=== PATIENT | female | born 1980 | race Caucasian/White ===

== ENCOUNTER 2016-08-22 18:49 | Observation (INO) ==
[2016-08-22] MEDS ORDERED: *HR* Promethazine 25 MG/ML VIAL IVP PRN (18:58)
[2016-08-22] MEDS ORDERED: *HR* HYDROmorphone (PF) 1 MG/ML SYRINGE IVP PRN (18:58)
[2016-08-22] MEDS ORDERED: Acetaminophen 325 MG TABLET PO PRN (18:58)
[2016-08-22] MEDS ORDERED: Ringers Solution, Lactated 1,000 ML IVC ONE (19:05)
--- NOTE | 2016-08-22 19:19 | OB/GYN History & Physical ---
Date of Encounter: 08/22/16 Time of Encounter: 19:16 Assessment and Plan (1) 8 weeks gestation of Current visit: Yes Status: Acute (2) Acute right flank pain Current visit: Yes Status: Acute Pt with significant back pain and symptoms of dysuria, frequency and urgency as well as n/v. Will admit for IVF and IV antiemetics. Will start on Rocephin. Will strain urine. If pain persists consider renal u/s. (3) Cystitis Current visit: Yes Status: Acute History of Present Illness Chief complaint: Back pain, urinary frequency and urgency, nausea and now emesis HPI: Ms. Woodall is a 36 year old female 2 para 1 female with an EDC of 03/29/17 currently 8 weeks and 5 days presents with a one-week history of nausea and now today with severe pain and right low back, suprapubic pain, urinary urgency and frequency and dysuria. She continues to have nausea and now has emesis. She did have some first trimester spotting she is no longer having any bleeding. She has no history of prior UTI or nephrolithiasis. Past Med Surg Social Fam HX - Past Medical History Source: patient, old records reviewed Medical history: asthma - Past Surgical History Surgical History: no surgical history Obstetrical History - Pregnancies : 2 Para: 1 Review of System OB All systems PM: reviewed and no additional remarkable complaints except as stated Exam - Constitutional Constitutional: well developed, no acute distress - HEENT HEENT: EOMI, PERRL - Neck Neck exam: full ROM - Lungs Respiratory exam: CTAB - Cardiovascular Cardiovascular exam: RRR - Abdomen Abdomen: Present: gravid Abdomen detail: right lower quadrant: tenderness (mostly suprapubic), left lower quadrant: tenderness - Extremities Extremities exam: full ROM Deep Tendon Reflex Grade: 2+ Normal Results All other labs normal.
[2016-08-22 19:34] LABS: Basophils % 0.1 %; Eosinophils % 0.1 %; Hematocrit 40.4 % (35.3-44.9); Hemoglobin 13.4 g/dL (11.5-15.4); Immature Granulocytes % 0.4 % (0-4); Lymphocytes # 1.3 K/mcL (0.6-4.6); Lymphocytes % 9.3 %; Mean Corpuscular HGB Conc 33.2 g/dL (31.6-35.5); Mean Corpuscular Hemoglobin 27.3 pg (28.0-33.3); Mean Corpuscular Volume 82.4 fL (83.0-100.0); Mean Platelet Volume 9.3 fL (9.4-12.4); Monocytes # 0.4 K/mcL (0.0-1.3); Platelet Count 214 K/mcL (140-400); Red Cell Distribution Width 14.2 % (11.5-14.5); Segmented Neutrophils % 87.1 %
[2016-08-22 19:52] LABS: BUN/Creatinine Ratio 11 (6-26); Blood Urea Nitrogen 11 mg/dL (7-20); Calcium 9.3 mg/dL (8.6-10.8); Carbon Dioxide 21 mEq/L (19-29); Chloride 108 mEq/L (98-109); Glucose 107 mg/dL (70-99); Osmolality,Calculated 286 (280-300); Sodium 138 mEq/L (136-145); eGFR For African Americans > 60 (> 60); eGFR For Non-African Americans > 60 (> 60)
[2016-08-22] MEDS: Ringers Solution, Lactated 1,000 ML IVC SCH (22:42)
--- NOTE | 2016-08-23 07:13 | History & Physical Report ---
Date of Encounter: 08/23/16 Time of Encounter: 07:13 24 Hour HP Update - Instructions Instructions: If the History and Physical is less than 30 days old and was completed prior to A.M. admission and or procedure and has NOT been updated on calendar day of procedure please complete this update prior to performing procedure. - Update Patient reports changes in Medical Condition: No Changes in examination, assessment, or condition: No Changes in Medication: No Preop tests/diagnostics Reviewed: Yes Surgery Remains Indicated: Yes Consent for Planned Operative Procedure(s) Verified: Yes - Pre-Operative Checklist Preoperative Checklist Indicated: Yes Prophylactic Antibiotic Ordered: Yes Home Medications Include Beta Laurie: No Beta Laurie Taken Today (Day of Surgery): No Beta Laurie Taken Yesterday (Day Prior to Surgery): No Is VTE Prophylaxis Indicated?: Yes
[2016-08-23 07:21] LABS: Bilirubin,Urine Small (Negative); Blood,Urine Large (Negative); Clarity,Urine Turbid (Clear); Color,Urine Red (Yellow); Glucose,Urine (UA) Normal (Normal); Ketones,Urine 15 mg/dL (Negative); Leukocyte Esterase,Urine Moderate (Negative); Nitrite,Urine Negative (Negative); Protein,Urine 100 mg/dL (Neg-Trace); Specific Gravity,Urine 1.029 (1.010-1.025); Urobilinogen,Urine Normal (Normal)
[2016-08-23 07:24] LABS: RBC,Urine TNTC per hpf (0-3); Squamous Epithelial Cell,Urine Many per lpf (None-Few)
--- NOTE | 2016-08-23 07:29 | Discharge Summary ---
Date of Encounter: 08/23/16 Time of Encounter: 07:29 - Discharge Diagnosis (1) 8 weeks gestation of Priority: Secondary Status: Acute Comments: Patient states vaginal spotting; vaginal ultrasound performed yesterday. Per patient, no subchorionic bleed noted during ultrasound. Continue pelvic rest. Follow up in office if spotting continues past Tuesday of this week. Continue routine care. (2) Acute right flank pain Priority: Primary Status: Resolved Comments: Right flank pain resolved. Finish one liter of LR and patient may be discharged home. (3) Cystitis Priority: Primary Status: Acute Comments: Patient continues to complain of urgency with urination. Continue with keflex po as ordered until Rx completed Encourage increased water consumption Decrease caffeine and acidic foods in diet. Follow up in office with routine care or as needed if urinary urgency has not resolved by Tuesday of this week. - Discharge Medications Home Medications: Acetaminophen [Tylenol] 650 mg PO Q6HR PRN #0 tablet 08/23/16 [Rx] Data Procedures and tests throughout hospitalization: Laboratory Tests 08/22/16 08/22/16 08/22/16 19:24 19:24 20:20 WBC 13.8 H RBC 4.90 Hgb 13.4 Hct 40.4 MCV 82.4 L MCH 27.3 L MCHC 33.2 RDW 14.2 Plt Count 214 MPV 9.3 L Immature Gran % 0.4 Seg Neutrophils % 87.1 Lymphocytes % 9.3 Monocytes % 3.0 Eosinophils % 0.1 Basophils % 0.1 Neutrophils # 12.0 H Lymphocytes # 1.3 Monocytes # 0.4 Eosinophils # 0.0 Basophils # 0.0 Sodium 138 Potassium 4.0 Chloride 108 Carbon Dioxide 21 BUN 11 Creatinine 1.01 Est GFR ( Amer) > 60 Est GFR (Non-Af Amer) > 60 BUN/Creatinine Ratio 11 Glucose 107 H Calculated Osmolality 286 Calcium 9.3 Urine Color Red A Urine Clarity Turbid A Urine pH 6.0 Ur Specific [place] 1.029 H Urine Protein 100 H Urine Glucose (UA) Normal Urine Ketones 15 H Urine Blood Large H Urine Nitrite Negative Urine Bilirubin Small H Urine Urobilinogen Normal Ur Leukocyte Esterase Moderate H Labs on day of discharge: Labs from last 24 hours 08/22/16 08/22/16 08/22/16 20:20 19:24 19:24 WBC 13.8 H RBC 4.90 Hgb 13.4 Hct 40.4 MCV 82.4 L MCH 27.3 L MCHC 33.2 RDW 14.2 Plt Count 214 MPV 9.3 L Immature Gran % 0.4 Seg Neutrophils % 87.1 Lymphocytes % 9.3 Monocytes % 3.0 Eosinophils % 0.1 Basophils % 0.1 Neutrophils # 12.0 H Lymphocytes # 1.3 Monocytes # 0.4 Eosinophils # 0.0 Basophils # 0.0 Sodium 138 Potassium 4.0 Chloride 108 Carbon Dioxide 21 BUN 11 Creatinine 1.01 Est GFR ( Amer) > 60 Est GFR (Non-Af Amer) > 60 BUN/Creatinine Ratio 11 Glucose 107 H Calculated Osmolality 286 Calcium 9.3 Urine Color Red A Urine Clarity Turbid A Urine pH 6.0 Ur Specific [place] 1.029 H Urine Protein 100 H Urine Glucose (UA) Normal Urine Ketones 15 H Urine Blood Large H Urine Nitrite Negative Urine Bilirubin Small H Urine Urobilinogen Normal Ur Leukocyte Esterase Moderate H Date of admission: 08/22/16 18:52 Primary care physician: Raúl Reina MD Discharging clinician: Sandra Hoyt - Patient Status Disposition: Home, Self-Care Condition: Good Functional capacity at discharge: independent ambulation Overall status at discharge: patient is back to baseline - Discharge Instructions Follow Up With: Raúl Reina MD [Primary Care Provider] - Ksenia Diaz MD [Partnered Physician] - - Diet and Activity Activity: resume usual activities as tolerated Diet: regular diet Hospital Course [employer] Time Attestation: Total time spent providing and/or coordinating discharge services: Time Spent: Less than 30 minutes Exam - Constitutional Vitals: Temp Pulse Resp BP Pulse Ox 97.8 F 82 14 119/86 97 08/23/16 02:50 08/23/16 02:50 08/23/16 02:50 08/23/16 02:50 08/23/16 02:50 General appearance IM: cooperative, A&O X 3, pleasant - Respiratory Respiratory exam: Present: CTAB - Cardiovascular Cardiovascular exam IM: Present: RRR, +S1, +S2 - GI/Abdominal GI/Abdominal exam IM: normal bowel sounds, soft - Extremities Exam Extremities exam IM: Present: full ROM, normal capillary refill, normal inspection, radial pulses palpable and symetrical - Neurological Exam Neurological exam: alert, oriented X3, reflexes normal - VTE Documentation of Mechanical Device: Intermittent pneumatic compression device
[2016-08-23] MEDS: Ringers Solution, Lactated 1,000 ML IVC SCH (07:30)
[2016-08-23 07:37] LABS: Amorphous Sediment,Urine Many (Few); Bacteria,Urine Many per hpf (None-Few); Calcium Oxalate Crystals,Urine Present
== END 2016-08-23 12:49 | disposition home or self-care (01) ==
LOC: 1NENUOBS
PROVIDERS: ADMIT Obstetrics & Gynecology; ATTEND Obstetrics & Gynecology

== ENCOUNTER 2017-03-22 11:32 | Inpatient (IN) ==
--- NOTE | 2017-03-22 10:20 | OB/GYN History & Physical ---
Date of Encounter: 03/22/17 Time of Encounter: 10:16 Assessment and Plan (1) 39 weeks gestation of Current visit: Yes Status: Acute Admit for IOL due to AMA status. Plan for martinez induction. Allow intermittent monitoring and ambulation until continuous monitoring is indicated. GBS positive-PCN ppx Clear liquid diet once induction started. Epidural when requested. Anticipate . (2) AMA (advanced maternal age) multigravida 35+ Current visit: Yes Status: Acute Qualifiers: Trimester: third trimester Qualified Code(s): O09.523 - Supervision of elderly multigravida, third trimester (3) Obesity during in third trimester with antepartum complication Current visit: Yes Status: Acute (4) GBS (group B Streptococcus carrier), +RV culture, currently Current visit: Yes Status: Acute History of Present Illness Chief complaint: AMA, induction of labor HPI: Ms. Krishnan is a 36 year old female presenting at 30 weeks gestation for IOL due to AMA. This has been complicated by AMA status , obesity, family history of congenital cardiac defect, and GBS positive. No complaints today other than some situational anxiety. Good FM. Irregular UC. Blood type O positive Rubella immune HIV, Hep B, and Tpal negative GBS positive- pt allergic to augmentin but has tolerated PCN in the past. Progenity testing normal. Pt plans to have an epidural and will breastfeed her baby boy Past Med Surg Social Fam HX - Past Medical History Medical history: asthma Psychiatric history: no psych history - Past Surgical History Surgical History: breast surgery - Social History Smoking Status: Never smoker Smokeless Tobacco Status: No Alcohol use: none Drug use: none Occupational status: employed Current living situation: Home - Independent Activity Level: Independent ambulation Recent Out of Country Travel Within the Last 8 Weeks: No - Family History Mother History Unknown: Yes Adopted: No Living Status: Still Living Hx Family Medical Disorders: No (n/a) Obstetrical History - Pregnancies : 2 Para: 1 Term: 1 : 0 Ab's: 0 Livin - History/Complications History/Complications: uncomplicated first and delivery Medications and Allergies RX: Acetaminophen [Tylenol] 650 mg PO Q6HR PRN #0 tablet 08/23/16 [Rx] 3 Allergy/AdvReac Type Severity Reaction Status Date / Time Amoxicillin [From Augmentin] Allergy Vomiting Verified 08/23/16 07:47 clavulanic acid Allergy Vomiting Verified 08/23/16 07:49 [From Augmentin] Review of System OB All systems PM: reviewed and no additional remarkable complaints except as stated Exam - Constitutional Constitutional: well developed, well nourished, no acute distress - HEENT HEENT: Mucus Membranes Moist - Lungs Respiratory exam: CTAB - Cardiovascular Cardiovascular exam: RRR, +S1, +S2 - Abdomen Abdomen: Present: gravid, non tender - Extremities Extremities exam: normal inspection - Vulva Vulva: bilateral: normal - Vagina Vagina: Present: normal moisture - Cervix Dilation: 2 Effacement: 50 Station: -3 - Uterus Uterus exam: Present: normal size, normal contour. Absent: tender - Anus/Rectum Anus/Rectum: Present: normal perianal skin Results Result Diagrams: 03/22/17 10:30 All other labs normal. - VTE Reasons for not Prescribing Prophylaxis: Treatment not Indicated - Low risk for VTE
[2017-03-22] MEDS: Ringers Solution, Lactated 1,000 ML IVC SCH ×2 (10:44→17:29)
[2017-03-22 10:46] LABS: Basophils % 0.1 %; Eosinophils % 0.3 %; Hematocrit 39.1 % (35.3-44.9); Hemoglobin 12.9 g/dL (11.5-15.4); Immature Granulocytes % 0.6 % (0-4); Lymphocytes # 1.5 K/mcL (0.6-4.6); Lymphocytes % 12.9 %; Mean Corpuscular Hemoglobin 28.7 pg (28.0-33.3); Mean Corpuscular Volume 86.9 fL (83.0-100.0); Mean Platelet Volume 10.6 fL (9.4-12.4); Monocytes # 0.5 K/mcL (0.0-1.3); Monocytes % 4.4 %; Neutrophils # 9.2 K/mcL (1.6-8.9); Nucleated Red Blood Cells 0.2 /100 WBC (0); Platelet Count 132 K/mcL (140-400); Segmented Neutrophils % 81.7 %
--- NOTE | 2017-03-22 11:10 | OB Labor Progress Note ---
Date of Encounter: 03/22/17 Time of Encounter: 11:08 Labor Progress Note - Subjective Subjective: Pt denies pain or other complaints at this time. - Cervix Cervix: 3/70/-2 - Heart Tones Heart Tones: Category I - [place]: irregular - Interventions Interventions: Martinez balloon placed in cervix. Balloon inflated with 60ml sterile water. Pt tolerated well. - Plan Plan: Allow pt to ambulate and use birthing ball. Pt also permitted to use breastpump at this time. Will plan for further augmentation of labor once martinez is out.
[~2017-03-22 11:32] MED LIST: *HR* Nalbuphine 20 MG/ML AMPUL IVP PRN; Famotidine 20 MG/2 ML VIAL IVP PRN; Methylergonovine 0.2 MG/ML AMPUL IM ONE; Naloxone 0.4 MG/ML INJ IVP PRN; Ondansetron 4 MG/2 ML VIAL IVP PRN; Penicillin G Potassium 5,000,000 UNIT in D5% in Water 100 ML IVPB ONE; Ringers Solution, Lactated 1,000 ML ONE
[2017-03-22 13:30] LABS: Amphetamine Screen,Urine Negative ng/mL (Cutoff=1000); Barbiturate Screen,Urine Negative ng/mL (Cutoff=200); Benzodiazepines Screen,Urine Negative ng/mL (Cutoff=200); Cannabinoid Screen,Urine Negative ng/mL (Cutoff = 50); Cocaine Screen,Urine Negative ng/mL (Cutoff= 300); Opiate Screen,Urine Negative ng/mL (Cutoff=300); Phencyclidine Screen,Urine Negative ng/mL (Cutoff=25)
--- NOTE | 2017-03-22 13:55 | OB Labor Progress Note ---
Date of Encounter: 03/22/17 Time of Encounter: 13:52 Labor Progress Note - Subjective Subjective: Pt comfortable at this time. - Cervix Cervix: 5-6/70/-2 - Heart Tones Heart Tones: Category I - [place]: irregular - Interventions Interventions: AROM for small amount blood tinged fluid - Plan Plan: Monitor FHT for 20 minutes and then allow pt to ambulate and use birthing ball. Plan for epidural when requested. Anticpate .
[2017-03-22] MEDS ORDERED: Epidural Premix (fent/bupiv) 110 ML EP ONE (14:29)
[2017-03-22] MEDS: Penicillin G Potassium 2,500,000 UNIT in D5% in Water 100 ML IVPB SCH ×2 (14:37→18:35)
--- NOTE | 2017-03-22 15:11 | Anesthesia Evaluation PreOp ---
Date of Encounter: 03/22/17 Time of Encounter: 14:48 - Past History Planned Operation: vaginal del, ROM 6cm, Cardiac History: Denies any Significant Hx Pulmonary History: Denies Any Significant HX FERRY CAPTAIN History: Denies Any Significant HX Other Medical History: Other (BMI 44) Anesthesia History: No Prior Anesthetic Complications, Past Anesthesia : Yes Alcohol Use: none Drug use: none Medications and Allergies Acetaminophen [Tylenol] 650 mg PO Q6HR PRN #0 tablet 08/23/16 [Rx] 3 Allergy/AdvReac Type Severity Reaction Status Date / Time Amoxicillin [From Augmentin] Allergy Vomiting Verified 08/23/16 07:47 clavulanic acid Allergy Vomiting Verified 08/23/16 07:49 [From Augmentin] Anesthesia Results - Labs 03/22/17 10:30 Anesthesia Exam - HEENT Pupil (Motor): Pupils equal Mallampati: III Teeth: Normal Oral Opening: Greater than 3 - FERRY CAPTAIN LOC: Oriented FERRY CAPTAIN Motor: Normal RUE, Normal LUE, Normal RLE, Normal LLE, Normal Face FERRY CAPTAIN Sensory: Normal: RUE, LUE, RLE, LLE, Face - Cardiac Rhythm: Regular Murmur: None - Pulmonary Breath Sounds: bilateral Clear Respiratory Effort: Symmetrical Anesthesia Assess/Plan ASA Score: 3 Modified Merry Scale for Level of Consciousness: Cooperative, oriented, and tranquil Anesthetic Plan: General, Regional Monitoring Plan: Standard Monitors
--- NOTE | 2017-03-22 15:13 | Anesthesia Procedures ---
Date of Encounter: 03/22/17 Time of Encounter: 14:48 Procedures: Anesthesia - Epidural/Spinal Patient ID/Chart reviewed: Yes Patient examined: Yes OB Eval: Gestational age: term OB Eval: : 2 OB Eval: Hx Para: 1 OB Eval: Dilated at (cm): 6 OB Eval: Contractions: Non-stressed pattern Consent Obtained: Yes Site Prep: Aseptic Technique, Sterile prep and drape, 0.5% Chlorhexidine/Alcohol Patient position: upright Local Anesthetic: Lidocaine 1% Amount of Local Anesthetic used: 2 Touhy Needle Gauge: 18 Touhy Needle Depth (cm): 8 Catheter Depth at Skin (cm): 12 Test Dose (1.5% Lido + Epi): Volume given (mls): 3 Test Dose Result: Negative Loading Dose: Other: 12ml from solution Loading Dose Administered: Thru Catheter Infusion Med: 0.125% Bupivacaine w/ 2 mcg/ml Fentanyl Infusion Rate (mls/hr): [address]: Tegaderm, Tape Interspace Used: L3-L4 Loss of Resistance (LORA): Yes (saline) Blood: No CSF: No Paresthesia: No Procedure: vss though out, FHR stable per RN's
[2017-03-22] MEDS: Oxytocin 20 units/ LR 1000 mL 20 UNIT/1,000 ML BAG IVC SCH ×2 (16:03→22:04)
--- NOTE | 2017-03-22 19:36 | OB Labor Progress Note ---
Date of Encounter: 03/22/17 Time of Encounter: 19:35 Labor Progress Note - Subjective Subjective: Pt comfortable with epidural. - Cervix Cervix: 8/80/-1 - Heart Tones Heart Tones: Category II, variable decelerations with moderate variability noted. - Belmore Belmore: 2-3 minutes - Interventions Interventions: Pt repositioned. IUPC placed. - Plan Plan: Continue to monitor. Anticipate .
--- NOTE | 2017-03-22 21:21 | OB/GYN Procedure Note ---
Delivery - Delivery Date: 03/22/17 Provider: Radha Merchant Intrapartum events: none Delivery induction: martinez Delivery augmentation: rupture of membranes, pitocin Delivery monitor: external FHT, internal uterine Anesthesia: epidural Estimated Blood Loss: 350 - (s) A Delivery Date: 03/22/17 Delivery Time: 20:37 Presentation: vertex Position: LYLA Route of delivery: Gender: Male Viability: Viable Pounds: 7 Ounces: 12 Weight Gram: 3.52 kg at 1 minute: 8 at 5 mins: 9 Shoulder Dystocia: not encountered Specimens collected: cord blood Placenta: spontaneous Cord: 3 umbilical vessels - Repair Episiotomy: none Laceration Description: Perineal - 1st Degree - Complications Delivery complications: none Delivery comments: Pt pushed effectively for of viable male weighing 7lbs 12oz with apgars 8 at one minute and 9 at five minutes. After pulsations ceased the cord was clamped and cut and the placenta delivered spontaneous and intact. A first degree perineal laceration was repaired with 3-0 Vicryl. Mother and baby stable in kangaroo care following procedure. EBL 350ml. - Disposition Mom disposition: stable in LDR [place] disposition: stable in LDR
[2017-03-22] MEDS ORDERED: Benzocaine/Menthol 56 GM AEROSOL SPRAY TP PRN (22:34)
[2017-03-22] MEDS ORDERED: Oxytocin 20 units/ LR 1000 mL 20 UNIT/1,000 ML BAG IVC SCH (22:34)
[2017-03-22] MEDS ORDERED: Measles/Mumps/Rubella Vacc 0.5 ML VIAL SQ PRN (22:34)
[2017-03-22] MEDS ORDERED: Acetaminophen 325 MG TABLET PO PRN (22:34)
[2017-03-22] MEDS ORDERED: Lanolin 28 GM TUBE TP PRN (22:34)
[2017-03-22] MEDS: Ibuprofen 600 MG TABLET PO PRN (23:58)
[2017-03-23] MEDS: Ibuprofen 600 MG TABLET PO PRN (08:18)
--- NOTE | 2017-03-23 08:43 | Discharge Summary ---
Date of Encounter: 03/23/17 Time of Encounter: 08:53 - Discharge Diagnosis (1) Vaginal delivery Priority: Primary Status: Acute Comments: S/P vaginal delivery day 1 Pain is well controlled Denies problems with voiding and passing gas. States no swelling noted in labia and no pain present Lochia is light and without clots Tolerating regular diet Breast feeding is going well Discharge home today (2) Breast feeding status of mother Priority: Secondary Status: Acute - Discharge Medications Home Medications: Acetaminophen [Tylenol] 650 mg PO Q6HR PRN tablet 03/23/17 [Rx] Benzocaine/Menthol [place] [Dermoplast Olpe] 1 appl TP QID PRN aerosol 03/23/17 [Rx] Docusate [Colace] 100 mg PO BID capsule 03/23/17 [Rx] Ibuprofen [Motrin] 600 mg PO Q6HR PRN tablet 03/23/17 [Rx] Lanolin 1 appl TP Q4HR PRN tube 03/23/17 [Rx] Vit/FA 1 each PO DAILY tablet 03/23/17 [Rx] Allergies/Adverse Reactions: 3 Allergy/AdvReac Type Severity Reaction Status Date / Time Amoxicillin [From Augmentin] Allergy Vomiting Verified 08/23/16 07:47 clavulanic acid Allergy Vomiting Verified 08/23/16 07:49 [From Augmentin] Data Procedures and tests throughout hospitalization: Laboratory Tests 03/22/17 03/22/17 10:30 12:49 WBC 11.3 H RBC 4.50 Hgb 12.9 Hct 39.1 MCV 86.9 MCH 28.7 MCHC 33.0 RDW 16.0 H Plt Count 132 L MPV 10.6 Immature Gran % 0.6 Seg Neutrophils % 81.7 Lymphocytes % 12.9 Monocytes % 4.4 Eosinophils % 0.3 Basophils % 0.1 Neutrophils # 9.2 H Lymphocytes # 1.5 Monocytes # 0.5 Eosinophils # 0.0 Basophils # 0.0 Nucleated RBCs/100 WBC 0.2 H Urine Opiates Screen Negative Ur Barbiturates Screen Negative Ur Phencyclidine Scrn Negative Ur Amphetamines Screen Negative U Benzodiazepines Scrn Negative Urine Cocaine Screen Negative U Marijuana (THC) Screen Negative Labs on day of discharge: Labs from last 24 hours 03/22/17 03/22/17 12:49 10:30 WBC 11.3 H RBC 4.50 Hgb 12.9 Hct 39.1 MCV 86.9 MCH 28.7 MCHC 33.0 RDW 16.0 H Plt Count 132 L MPV 10.6 Immature Gran % 0.6 Seg Neutrophils % 81.7 Lymphocytes % 12.9 Monocytes % 4.4 Eosinophils % 0.3 Basophils % 0.1 Neutrophils # 9.2 H Lymphocytes # 1.5 Monocytes # 0.5 Eosinophils # 0.0 Basophils # 0.0 Nucleated RBCs/100 WBC 0.2 H Urine Opiates Screen Negative Ur Barbiturates Screen Negative Ur Phencyclidine Scrn Negative Ur Amphetamines Screen Negative U Benzodiazepines Scrn Negative Urine Cocaine Screen Negative U Marijuana (THC) Screen Negative Date of admission: 03/22/17 11:32 Primary care physician: PCP NONE Consults: 03/22/17 22:34 Consult to Operations Welder [CONS] Routine Comment: Vaginal delivery, consult needed Discharging clinician: Sandra Hoyt Anticipated date of discharge: 03/23/17 - Patient Status Disposition: Home, Self-Care Condition: Good Functional capacity at discharge: independent ambulation Overall status at discharge: patient is back to baseline - Discharge Instructions Follow Up With: NONE,PCP [Primary Care Provider] - Ksenia Diaz MD [Partnered Physician] - - Diet and Activity Activity: increase activity as tolerated Diet: regular diet 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 Reason for admission: other (IOL) Discharge diagnosis: other (Vaginal Delivery) Time Attestation: Total time spent providing and/or coordinating discharge services: Time Spent: Less than 30 minutes Exam - Constitutional Vitals: Temp Pulse Resp BP Pulse Ox 98 F 80 18 115/72 97 03/23/17 01:51 03/23/17 01:51 03/23/17 01:51 03/23/17 01:51 03/23/17 01:51 General appearance IM: cooperative, A&O X 3, pleasant - Respiratory Respiratory exam: Present: CTAB - Cardiovascular Cardiovascular exam IM: Present: RRR, +S1, +S2 - GI/Abdominal GI/Abdominal exam IM: normal bowel sounds, soft - Rectal Rectal exam: deferred - Uterine Tone: Firm Uterus Position: At Umbilicus, Midline - Extremities Exam Extremities exam IM: Present: normal capillary refill, normal inspection, radial pulses palpable and symmetrical - Neurological Exam Neurological exam: alert, oriented X3 - VTE Reasons for not Prescribing Prophylaxis: Treatment not Indicated - Low risk for VTE
[2017-03-23 08:56] VITALS: BP 116/76
[2017-03-23] MEDS ORDERED: Prenatal Vit/FA 1 EACH TABLET PO SCH (09:00)
== END 2017-03-23 21:19 | disposition home or self-care (01) | DRG 775 ==
LOC: 1NENULAB → UNDODISIN 12:08 → 1NENUOBS 23:04
PROVIDERS: ADMIT Registered Nurse; ATTEND Registered Nurse